=== PATIENT | male | born 1965 | race Caucasian/White ===

== ENCOUNTER 2020-10-23 03:48 | Emergency (ER) | payer SELFPAY ==
[~2020-10-23] VITALS: Ht 177.8 cm; Wt 83.9 kg
[2020-10-23] MEDS ORDERED: LORAZEPAM INJ 2 MG/ML VIAL IVP ONE (04:00)
[2020-10-23] MEDS ORDERED: OLANZAPINE 5 MG TABLET PO ONE (04:00)
[2020-10-23] MEDS ORDERED: diphenhydrAMINE HCL 50 MG/ML VIAL IV ONE (04:00)
[2020-10-23] MEDS ORDERED: IV NS 0.9% 1,000 ML BAG IV ONE ×2 (04:00→05:00)
[2020-10-23] MEDS ORDERED: LORAZEPAM INJ 2 MG/ML VIAL ONE (04:01)
[2020-10-23] MEDS ORDERED: OLANZAPINE 5 MG TABLET ONE (04:01)
[2020-10-23] MEDS ORDERED: diphenhydrAMINE HCL 50 MG/ML VIAL ONE (04:02)
[2020-10-23 04:06] LABS: BASOPHILS % (AUTO) 0.1 % (0.0-2.0); HEMATOCRIT 44 % (39-51); HEMOGLOBIN 14.8 g/dL (13.5-17.5); MEAN CORPUSCULAR HGB CONC 34 g/dl (31.0-36.0); MEAN CORPUSCULAR VOLUME 97 fL (80-96); MONOCYTES # (AUTO) 0.5 /CMM (0.1-1.30); MONOCYTES % (AUTO) 5.2 % (2.0-12.0); NEUTROPHILS # (AUTO) 8.4 /CMM (1.8-8.9); NEUTROPHILS % (AUTO) 84.7 % (43.0-81.0); PLATELET COUNT (AUTO) 248 /CMM (150-450)
[2020-10-23 04:14] LABS: CALCIUM, SERUM 9.9 mg/dL (8.5-10.1); CARBON DIOXIDE 23 mmol/L (21-32); CHLORIDE 105 mmol/L (98-107); CREATININE 1.8 mg/dL (0.6-1.3); GLUCOSE 162 mg/dL (74-106); POTASSIUM 4.4 mmol/L (3.5-5.1); SODIUM SERUM 143 mmol/L (136-145); UREA NITROGEN, BLOOD 19 mg/dL (7-18)
[2020-10-23] MEDS ORDERED: LABETALOL HCL IV 100MG VIAL ONE (04:15)
[2020-10-23] MEDS: OLANZAPINE 10 MG VIAL IM ONE ×2 (04:18→04:45)
[2020-10-23 04:28] LABS: ACETAMINOPHEN 0 ug/ml (10-30); ALANINE AMINOTRANSFERASE 48 U/L (12-78); ALBUMIN 4.6 g/dL (3.4-5.0); ALCOHOL, BLOOD < 3 mg/dL (0-0); ALKALINE PHOSPHATASE 62 U/L (46-116); ASPARTATE AMINOTRANSFERASE 45 U/L (15-37); BILIRUBIN,DIRECT 0.2 mg/dL (0.0-0.2); BILIRUBIN,TOTAL 0.6 mg/dL (0.2-1.0); TOTAL PROTEIN, SERUM 8.6 g/dL (6.4-8.2)
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
[2020-10-23] MEDS ORDERED: LABETALOL HCL IV 100MG VIAL IV ONE (04:30)
[2020-10-23] MEDS ORDERED: OLANZAPINE 10 MG VIAL IM ONE (04:39)
--- NOTE | 2020-10-23 04:43 | NUR ---
Rapid Covid swab done and sent to lab
--- NOTE | 2020-10-23 04:50 | NUR ---
CALL FROM LAB. RAPID COVID NEGATIVE.
--- NOTE | 2020-10-23 08:04 | NUR ---
PATIENT AWAKE, STILL SEEMS ANXIOUS. NO DISTRES NOTED.
--- NOTE | 2020-10-23 08:15 | NUR ---
verbalized he feels better and would like to be discharged,dr Kaba informed
--- NOTE | 2020-10-23 08:20 | NUR ---
Dr Kaba at bedside
[2020-10-23 08:44] VITALS: BP 138/87
--- NOTE | 2020-10-23 08:44 | NUR ---
Patient discharged to home in stable condition. Written and verbal after care instructions given. Patient verbalizes understanding of instruction.IV removed. Catheter intact and site benign. Pressure and 4x4 applied to site. No bleeding noted.
== END 2020-10-23 08:45 | disposition home or self-care (01) ==
LOC: ER 03:51
DX: F15.121 Other stimulant abuse with intoxication delirium (principal); R00.0 Tachycardia, unspecified; Z20.822 Contact with and (suspected) exposure to COVID-19; R73.9 Hyperglycemia, unspecified
CPT/HCPCS: 36415; 71045; 80048; 80076; 80299; 80320; 82550; 82553; 84443; 85025; 87426; 93005; 96361; 96372; 96374; 96375; 99285; C9803; J1200; J2060; J3490 ×2; J7030 ×2; G0480

== ENCOUNTER 2020-10-23 11:55 | Emergency (ER) | payer SELFPAY ==
[~2020-10-23] VITALS: Ht 175.3 cm; Wt 82.6 kg
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
[2020-10-23] MEDS ORDERED: IV NS 0.9% 1,000 ML IV ONE (12:30)
--- NOTE | 2020-10-23 15:28 | NUR ---
PT UNABLE TO PROVIDE THE NUMBER OF HIS BROTHER FOR [employer]. PT IS PRESENTING WITH WEIRD BEHAVIOR, WANT TO KEEP TRYING OPENING (SPLIT OPEN) HIS PHONE BECAUSE THE INFORMATION. PT PHONE IS LOCKED OUT. WILL CONTINUE TO MONITOR
--- NOTE | 2020-10-23 17:30 | NUR ---
PT PROVIDED WITH A MEAL
--- NOTE | 2020-10-23 19:33 | NUR ---
PT IS CLEARED FOR DISCHARGE. PT DOES NOT WANT TO HAVE HIS BROTHER PICK HIM UP.
--- NOTE | 2020-10-23 19:37 | NUR ---
IV removed. Catheter intact and site benign. Pressure and 4x4 applied to site. No bleeding noted.
--- NOTE | 2020-10-23 19:37 | NUR ---
Patient discharged to home in stable condition. Written and verbal after care instructions given. Patient verbalizes understanding of instruction. Pt ambulatory with a steady gait
[2020-10-23 19:39] VITALS: BP 136/82
== END 2020-10-23 19:43 | disposition home or self-care (01) ==
LOC: ER 11:58
DX: F15.929 Other stimulant use, unspecified with intoxication, unspecified (principal)
CPT/HCPCS: 96360; 99285; J7030

== ENCOUNTER 2024-05-01 14:26 | Emergency (ER) | payer OTHER ==
[~2024-05-01] VITALS: Ht 177.8 cm; Wt 77.1 kg
[2024-05-01] MEDS ORDERED: LEVETIRACETAM (500MG) 500 MG in IV NS 0.9% 100 ML IV ONE (15:00)
[2024-05-01] MEDS: LEVETIRACETAM (500MG) 1,000 MG in IV NS 0.9% 90 ML IV SCH (15:08)
[2024-05-01 15:12] LABS: BASOPHILS % (AUTO) 0.3 % (0.0-2.0); EOSINOPHILS % (AUTO) 0.4 % (0.0-6.0); HEMATOCRIT 42 % (39-51); LYMPHOCYTES # (AUTO) 1.2 K/uL (0.8-4.8); LYMPHOCYTES % (AUTO) 15.9 % (20.0-44.0); MEAN CORPUSCULAR HEMOGLOBIN 34 PG (26.0-33.0); MEAN CORPUSCULAR HGB CONC 36 g/dl (31.0-36.0); MEAN CORPUSCULAR VOLUME 96 fL (80-96); MONOCYTES # (AUTO) 0.6 K/uL (0.1-1.30); NEUTROPHILS # (AUTO) 5.8 K/uL (1.8-8.9); NEUTROPHILS % (AUTO) 75.4 % (43.0-81.0); PLATELET COUNT (AUTO) 191 K/uL (150-450); RED BLOOD CELL COUNT(AUTO) 4.41 MIL/uL (4.5-6.0); RED CELL DISTRIBUTION WIDTH 13.1 % (11.5-15.0); WHITE BLOOD COUNT (AUTO) 7.7 K/uL (4.3-11.0)
[2024-05-01 15:20] LABS: CALCIUM, SERUM 8.8 mg/dL (8.5-10.1); CARBON DIOXIDE 28 mmol/L (21-32); CHLORIDE 105 mmol/L (98-107); CREATININE 1.3 mg/dL (0.6-1.3); GLUCOSE 177 mg/dL (74-106); POTASSIUM 3.6 mmol/L (3.5-5.1); SODIUM SERUM 141 mmol/L (136-145); UREA NITROGEN, BLOOD 10 mg/dL (7-18)
[2024-05-01 15:23] LABS: INR 0.96 (0.91-1.10); PARTIAL THROMBOPLASTIN TIME 25.6 SEC (24.3-34.3); PROTHROMBIN TIME 10.2 SECS (9.2-11.1)
[2024-05-01 15:26] LABS: ALANINE AMINOTRANSFERASE 36 U/L (12-78); ALBUMIN 3.7 g/dL (3.4-5.0); ALCOHOL, BLOOD < 3 mg/dL (0-10); ALKALINE PHOSPHATASE 88 U/L (46-116); ASPARTATE AMINOTRANSFERASE 18 U/L (15-37); BILIRUBIN,DIRECT 0.1 mg/dL (0.0-0.2); BILIRUBIN,TOTAL 0.4 mg/dL (0.2-1.0); TOTAL PROTEIN, SERUM 7.7 g/dL (6.4-8.2)
[2024-05-01 15:32] LABS: LACTIC ACID 2.3 mmol/L (0.4-2.0)
[2024-05-01] MEDS ORDERED: LEVE500T9 PO (16:49)
[2024-05-01 16:59] LABS: AMPHETAMINE, URINE NEGATIVE (NEGATIVE); BARBITURATE, URINE NEGATIVE (NEGATIVE); BENZODIAZEPINE, URINE NEGATIVE (NEGATIVE); CANNABINOID, URINE NEGATIVE (NEGATIVE); COCCAINE, URINE NEGATIVE (NEGATIVE); OPIATE, URINE NEGATIVE (NEGATIVE); PHENCYCLIDINE SCREEN,URINE NEGATIVE (NEGATIVE)
[2024-05-01 17:24] VITALS: BP 116/81; TEMP 98.6; O2SAT 95
== END 2024-05-01 17:25 | disposition home or self-care (01) ==
LOC: ER 14:30
DX: G40.909 Epilepsy, unspecified, not intractable, without status epilepticus (principal); E87.20 Acidosis, unspecified
CPT/HCPCS: 99285; 96365; 93005; 71045; 70450; 85025; 80048; 83605; 80076; 36415; 85730; 82962; 80320; 80307; J7030 ×3; J1953 ×2; G0480